=== PATIENT | female | born 1980 | race Caucasian/White ===

== ENCOUNTER 2021-05-10 11:25 | Emergency (ER) | payer BC ==
[~2021-05-10] VITALS: Ht 172.7 cm; Wt 72.6 kg
[~2021-05-10 11:25] MED LIST: MULVITMINE; ONDA4ODT MM; ONDA8 PO; RXPROM25 PO
== END 2021-05-10 16:00 | disposition home or self-care (01) ==
LOC: ER 11:25
DX: S01.81XA Laceration without foreign body of other part of head, initial encounter (principal); S81.812A Laceration without foreign body, left lower leg, initial encounter; S81.811A Laceration without foreign body, right lower leg, initial encounter; Z23 Encounter for immunization; W11.XXXA Fall on and from ladder, initial encounter
CPT/HCPCS: 12002; 12053; 90471; 96372-59; 99283-25; A9270; J0690

== ENCOUNTER → 2023-06-21 | Outpatient (CLI) | payer BC | LOC: LAB SHORT 10:27 → LAB 10:27 | DX: R30.0 Dysuria (principal) | CPT/HCPCS: 87077; 87086; 87186 ==